=== PATIENT | female | born 1970 | race Asian ===

== ENCOUNTER 2024-09-18 13:36 | Outpatient (AMB) | payer MEDICAID, SELFPAY ==
[2024-09-18 14:08] VITALS: BP 127/74; PULSE 91; RESP 18; TEMP 36.3; O2SAT 95; BMI 28.0
--- NOTE | 2024-09-18 14:08 | ACNOTE_ITS ---
Vital Signs 09/18/24 14:08 Height 1.6 m Height Method Stated Weight 71.894 kg Weight Measurement Method Standing Scale BMI 28.0 BP 127/74 Blood Pressure Source Automatic Cuff Blood Pressure Location Left Upper Arm Position Sitting Respiration 18 Pulse 91 Pulse Source Monitor Temp 97.3 F Temp Source Oral Pulse Oximetry (%) 95 Oxygen Delivery Method Room Air Allergies/Meds Allergies & Medications Allergies Sulfa (Sulfonamide Antibiotics) Allergy (Verified 09/18/24 14:09) Medication Reconciliation famotidine 40 mg tablet 40 mg PO QDAY #90 tabs 01/03/24 [Rx Confirmed 09/18/24] ibuprofen 600 mg tablet 600 mg PO TID PRN arthritis #90 tabs 01/03/24 [Rx Confirmed 09/18/24] diclofenac sodium 1 % topical gel (Arthritis Pain (diclofenac)) 4 g topical QID #100 grams 07/12/24 [Rx Confirmed 09/18/24] bupropion HCl 150 mg 24 hr tablet, extended release 150 mg PO QAM 1 month #30 tabs 08/10/24 [Rx Confirmed 09/18/24] cariprazine 3 mg capsule 3 mg PO QDAY 1 month #30 caps 08/10/24 [Rx Confirmed 09/18/24] losartan 100 mg-hydrochlorothiazide 25 mg tablet 90 tab PO QDAY Hypertension #30 tabs 08/10/24 [Rx Confirmed 09/18/24] sertraline 200 mg capsule 200 mg PO QDAY depression #30 caps 09/11/24 [Rx Confirmed 09/18/24] zolpidem 5 mg tablet (Ambien) 5 mg PO QHS PRN insomnia #30 tabs 09/21/24 [Rx] MA Intake Visit Data Collection New Patient or Established: Established Patient (seen at [facility] within 3 years) Seen by Clinical Staff ONLY (RN/MA): No Pain Present Currently: Yes Pain Location: Finger and Hand Pain scale:: 6 Pain Scale Used: [place]/[employer] Compounder Helper Required: No PCP or OBGYN visit in last 3 months: Yes Do You Feel Safe at Home: Yes Authorities Contacted: N/A Smoking Status Smoking Status: Never smoker Immunization / Flu Flu Vaccine in the Last 12 Months: No Flu Vaccine Exclusion Criteria: Refused by Patient Past Medical History Past Medical History CARDIAC: Positive Hypertension; Negative Congestive Heart Failure RESPIRATORY: Negative Chronic Obstructive Pulmonary Disease (COPD) GASTROINTESTINAL: Positive Gastrointestinal Disorders GENITOURINARY: Negative Renal Disease MUSCULOSKELETAL: Positive Arthritis ENDOCRINE: Negative Diabetes Mellitus Type 1 or Diabetes Mellitus Type 2 PSYCHO/SOCIAL: Positive Depression Family History FAMILY HISTORY: Positive Family Cancer Social History SMOKING STATUS: Smoking status: Never smoker SECOND HAND EXPOSURE: second hand exposure: Yes (Housemate) ALCOHOL: Alcohol Intake: Former ALCOHOL FREQUENCY: Alcohol Intake Frequency: A Few Times a Week HOUSING: Housing: House LIVES WITH: Lives With: Friend(s) 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 Patient Portal Questionaires Social History Living Situation History Housing: House Tobacco History Smoking Status: Never smoker Second Hand Smoke Exposure: Yes (Housemate) Alcohol History Alcohol Intake: Former Alcohol Intake Frequency: A Few Times a Week Domestic Abuse History Do You Feel Safe at Home: Yes Review of Systems Report any current symptoms Only answer those that you have currently: Past Medical History Past Medical History Have you ever been diagnosed with any of the following: Cardiology Problems Congestive Heart Failure: No Hypertension: Yes Respiratory Problems Chronic Obstructive Pulmonary Disease (COPD): No Genital/Urinary Problems Renal Disease: No Musculoskeletal Problems Arthritis: Yes Endocrine Problems Diabetes Mellitus Type 1: No Diabetes Mellitus Type 2: No Psychologic Problems Depression: Yes History of Present Illness HPI Narrative Follow up visit Patient ran out of sertraline for 1 week prior to having it refilled. During this time she experienced an acute stress and depressive episode and had to take time off from work. Today patient is requesting completion of a letter for extended leave from her workplace. She also requested sick leave. Both the letter and sick leave were issued and also faxed to her workplace. With regards to her insomnia patient says that Hydroxyzine does not work for her and for the past year she only gets on average 2-3 hours of sleep per night. Will discontinue her hydroxyzine and start on a trial of Zolpidem 5mg po HS as needed. To reassess at next visit. Her home medication Losartan/HCTZ 100/25 po daily was refilled. Patient reports home SBP's between 120s-130s. Objective/Exam Narrative Physical exam: Constitutional Alert, oriented x 3. Middle Aged Female. HEENT Vision grossly intact. Patent nares. Trachea midline Respiratory Chest normal on inspection and clear auscultation bilaterally Cardiovascular S1 and S2 audible, RRR. No murmurs carotid bruit. No gross JVD. Abdominal Soft and non tender to palpation in all quadrants. BS + Genitourinary No bladder tenderness, no flank pain. Normal to palpation Musculoskeletal Extremities tone within normal limits. No LE edema. Neurological CN II - XII grossly intact. Extremity motor and sensation grossly intact. Skin Warm, dry and intact. No apparent lesions. Psychiatric Tearful and Stressed affect Assessment & Plan Diagnosis / Problem List (1) Insomnia disorder, with non-sleep disorder mental comorbidity, recurrent: Status: Acute Assessment & Plan: With regards to her insomnia patient says that Hydroxyzine does not work for her and for the past year she only gets on average 2-3 hours of sleep per night. Will discontinue her hydroxyzine and start on a trial of Zolpidem 5mg po HS as needed. To reassess at next visit. Patient counselled to give herself at least an 8-10 hour window to sleep. She was informed not to drive or operate any heavy machinery while under the effect of medication. Also counselled about side effects of somnolence if sufficient sleep period not obtained. Plan: Plan: - Discontinued Hydroxyzine - Zolpidem 5mg po HS as needed for insomnia - To reasses at next visit - Patient counselled and advised if any new, persistent or worsening symptoms to either call the office, dial 911 or present to the emergency department. Plan Plan of care discussed with Attending Dr. Alma Napoles MD PGY 1 Additional Assessment Attending note: I, David Marquez MD, attest that I was physically present for the macias portions of the service and evaluated the patient with the resident and I reviewed and discussed the case with the resident and agree with the resident's findings and plans of care as documented above. Follow-up visit. Chronic problems reviewed. Blood pressure under good control with losartan hydrochlorothiazide. Patient remains on sertraline and Vraylar (cariprazine). Mood fairly stable. Continue to have issues with insomnia. Has tried multiple agents. We will try low-dose Ambien. Possible side effects reviewed with patient by resident physician. Sleep hygiene reviewed. David Marquez MD Physician Billing Established Patient Established Patient: E/M Level 3-CPT 17259 Office Procedures [facility] Level of Care Nursing/Assessment Patient Status: Established Patient Nursing Assessment/Reassessment: Medication Reconciliation, Update PMH in EMR and Vital Signs Coordination of Care: Complex Care and Chronic Disease 1-5, Consent,records obtained, informed consent, Education Simp Pt/Fam and Staff clarify orders Established Patient Charge Established Patient Point Assignment: 85 Established Patient Point Charge: EP Level 3 (80-115)
== END 2024-09-18 15:10 | disposition home or self-care (01) ==
LOC: HODAHC 13:36
PROVIDERS: Supervising Provider Internal Medicine
DX: F51.05 Insomnia due to other mental disorder (principal)
CPT/HCPCS: 99213; G0463

== ENCOUNTER 2024-09-27 02:35 | Emergency (ER) | payer MEDICAID, SELFPAY ==
[2024-09-27 02:43] VITALS: PULSE 68; RESP 24; O2SAT 99; BMI 27.1
[2024-09-27 02:56] VITALS: BP 168/98; PULSE 64; RESP 18; TEMP 36.6; O2SAT 97
--- NOTE | 2024-09-27 03:04 | XR_ITS ---
Examination: CT abdomen and pelvis without contrast. Coronal 3-D reconstructions. Sagittal 2-D reconstructions. Date and time of exam:September 27, 2024 0342 hrs. Indications: Right flank pain beginning yesterday getting worse CTDI: vol (mGy): 7.70 DLP: (mGycm): 395 Technique: Axial images of the abdomen have been obtained, 3 mm slice thickness Intravenous contrast material has not been administered. Low dose protocols were performed. One or more of the following dose reduction techniques were used; automated exposure control, adjustment of the mA and/or KV according to patient size, use of iterative reconstruction technique. Findings: No focal liver or splenic lesions Gastric sutures Absent gallbladder No pancreatic or adrenal mass Moderate left mild right renal parenchymal scar formation No renal or ureteral calculi, no hydronephrosis Normal appendix No bowel obstruction or diverticulitis Anteverted uterus Moderate osteopenia, advanced degenerative disc disease L1-L2, L2-L3, L5-S1 Impression: Moderate left mild right renal parenchymal scar formation No renal or ureteral calculi, no hydronephrosis Normal appendix No bowel obstruction diverticulitis or free air
--- NOTE | 2024-09-27 03:07 | PD.EDBACK ---
ED Back Injury Pain RME/HPI General Chief Complaint: Abdominal Pain Stated Complaint: RIGHT FLANK PAIN Time Seen by Provider: 09/27/24 03:04 Arrival date/time: 09/27/24 02:35 53F with history of HTN and psych presents to ED with 2 days of R flank pain and N/V. Patient has had kidney stones before and states this feels similar. Patient denies CP, SOB, leg pain/swelling, and fall/trauma. Limitations: no limitations Related Data Previous Rx's ?Medication ?Instructions ?Recorded famotidine 40 mg tablet 40 mg PO QDAY #90 tabs 01/03/24 ibuprofen 600 mg tablet 600 mg PO TID PRN arthritis #90 01/03/24 tabs diclofenac sodium 1 % topical gel 4 g topical QID #100 grams 07/12/24 (Arthritis Pain (diclofenac)) bupropion HCl 150 mg 24 hr tablet, 150 mg PO QAM 1 month #30 tabs 08/10/24 extended release cariprazine 3 mg capsule 3 mg PO QDAY 1 month #30 caps 08/10/24 losartan 100 90 tab PO QDAY Hypertension #30 08/10/24 mg-hydrochlorothiazide 25 mg tablet tabs sertraline 200 mg capsule 200 mg PO QDAY depression #30 caps 09/11/24 zolpidem 5 mg tablet (Ambien) 5 mg PO QHS PRN insomnia #30 tabs 09/21/24 Allergies Allergy/AdvReac Type Severity Reaction Status Date / Time Sulfa (Sulfonamide Allergy Verified 09/18/24 14:09 Antibiotics) Review of Systems Review of Systems Systems Reviewed: All systems reviewed, normal except as documented Constitutional Constitutional: Reports system reviewed and no additional complaints, except as documented, Denies fever(s) and Denies headache(s) ENT Ears, Nose, Mouth, and Throat: Denies disequilibrium and Denies headache(s) Cardiovascular Cardiovascular: Reports system reviewed and no additional complaints, except as documented, Denies chest pain and Denies dyspnea Respiratory Respiratory: Reports system reviewed and no additional complaints, except as documented, Denies cough and Denies dyspnea Gastrointestinal Gastrointestinal: Reports system reviewed and no additional complaints, except as documented, Reports as per HPI, Denies abdominal pain, Reports nausea and Reports vomiting Genitourinary Genitourinary: Reports as per HPI and Reports flank pain Neurologic Neurologic: Reports system reviewed and no additional complaints, except as documented, Denies confusion, Denies disequilibrium and Denies headache(s) Psychiatric Psychiatric: Denies confusion Past Medical History Past Medical History CARDIAC: Positive Hypertension; Negative Congestive Heart Failure RESPIRATORY: Negative Chronic Obstructive Pulmonary Disease (COPD) GASTROINTESTINAL: Positive Gastrointestinal Disorders GENITOURINARY: Negative Renal Disease MUSCULOSKELETAL: Positive Arthritis ENDOCRINE: Negative Diabetes Mellitus Type 1 or Diabetes Mellitus Type 2 PSYCHO/SOCIAL: Positive Depression Family History FAMILY HISTORY: Positive Family Cancer Social History SMOKING STATUS: Never smoker SECOND HAND EXPOSURE: Yes (Housemate) SUBSTANCE USE: does not use 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 Exam General Limitations: Present no limitations General appearance: Present alert and in no apparent distress Head Head exam: Present atraumatic Eye Eye exam: Present normal appearance, PERRL and EOMI ENT ENT exam: Present normal exam, normal oropharynx and mucous membranes moist Neck Neck exam: Present normal inspection, full ROM and trachea midline Chest Chest inspection: Present normal inspection and symmetric chest wall rise Respiratory Respiratory exam: Present normal lung sounds bilaterally Cardiovascular Cardiovascular exam: Present regular rate, normal rhythm and normal heart sounds Abdominal Exam Abdominal exam: Present soft and normal bowel sounds Extremities Exam Extremities exam: Present normal inspection and full ROM Back Exam Back exam: Present normal inspection and full ROM Neurological Exam Neurological exam: Present alert, oriented X3 and CN II-XII intact Psychiatric Psychiatric exam: Present normal affect and normal mood Skin Skin exam: Present warm, dry, intact and normal color Course Quality Measures none Orders Category Date Time Status CT abdomen pelvis wo con Stat Exams 09/27/24 03:04 Taken CBC Stat Lab 09/27/24 03:30 Completed CMP [Comprehensive Metabolic Panel] Stat Lab 09/27/24 03:30 Completed Lipase Stat Lab 09/27/24 03:30 Completed Urinalysis, C/S if Indicated Stat Lab 09/27/24 03:29 Completed HYDROcodone*/APAP 7.5/325 [[place] 7.5/325] Med 09/27/24 05:37 Discontinued 1 tab PO X1 ONE Ketorolac Inj [Toradol Inj] Med 09/27/24 03:04 Discontinued 60 mg IM X1 ONE Ondansetron Odt [Zofran Odt] Med 09/27/24 03:04 Discontinued 4 mg PO X1 ONE Vital Signs Vital signs: Vital Signs Temperature 97.9 F 09/27/24 02:56 Pulse Rate 64 09/27/24 02:56 Respiratory Rate 18 09/27/24 02:56 Blood Pressure 168/98 H 09/27/24 02:56 Pulse Oximetry (%) 97 09/27/24 02:56 Oxygen Delivery Method Room Air 09/27/24 02:56 O2 at 97% on RA and WNLs Back Pain / Injury MDM Narrative MDM Narrative:: 53F with history of HTN and psych presents to ED with 2 days of R flank pain and N/V. Patient has had kidney stones before and states this feels similar. Patient denies CP, SOB, leg pain/swelling, and fall/trauma. Physical exam reveals no flank tenderness. Patient is afebrile, alert, but appears to be in pain. CT no acute abnormalities. No leukocytosis. CMP unremarkable. UA clean. Lipase normal. Likely MSK-related. Patient data External records reviewed:: [facility] previous records Clinical information provided by:: patient Social determinants that could affect healthcare access:: mental health Patient has the following chronic illnesses:: HTN and psych How is presenting disease/condition affected by chronic disease/condition?: exacerbated by Evaluation data The following diagnostics were reviewed and interpreted by me:: lab results and radiology exam(s) Lab and/or radiology exams considered but not ordered:: ordered Interpretation Summary: above Medications / Prescriptions Medications or Prescriptions considered but not ordered:: ordered Medication administrations:: Medication Administration History Discontinued Medications Hydrocodone Bitart/Acetaminophen (Hydrocodone/Apap 7.5/325 Tablet) 1 tab PO X1 ONE Stop: 09/27/24 05:38 Ketorolac Tromethamine (Ketorolac Inj 60 Mg/2 Ml Vial) 60 mg IM X1 ONE Stop: 09/27/24 03:05 Last Admin: 09/27/24 03:12 Dose: 60 mg Documented By: KATE Ondansetron HCl (Ondansetron Odt 4 Mg Tabrap) 4 mg PO X1 ONE; Protocol Stop: 09/27/24 03:05 Last Admin: 09/27/24 03:13 Dose: 4 mg Documented By: KATE above Consultations Consultation(s) initiated? (list below): No Diagnosis Differential diagnosis back pain/injury: lumbar radiculopathy, sciatica, strain of lumbar region, renal colic, pyelonephritis, thoracic back pain, AAA, discitis and other (kidney stone, UTI) Most likely diagnosis given after review of the tests above:: lumbar radiculopathy Admission Indicated Admission indicated?: not indicated Admission Request Was there a request for admission?: No Disposition Plan Disposition Plan: Discharge Discharge Attestation Discharge Attestation: The patient and all family members were given an opportunity to ask questions and understood the discharge instructions. Discharge instructions specifically effects, indications for sooner follow up or return to the emergency department, and the expected course of current diagnosis. Patient condition: Stable Discharge Plan Plan Patient Disposition: HOME (Self Care) Disposition Comment: Stable Prescriptions/Referrals Prescriptions/Med Rec: No Action diclofenac sodium [Arthritis Pain (diclofenac)] 1 % gel 4 g topical QID Qty: 100 1RF Rx Instructions: apply to single knee, ankle, foot; for foot includes sole/toes/top of foot bupropion HCl 150 mg tablet extended release 24 hr 150 mg PO QAM 30 Days Qty: 30 2RF cariprazine 3 mg capsule 3 mg PO QDAY 30 Days Qty: 30 2RF losartan-hydrochlorothiazide 100-25 mg tablet 90 tab PO QDAY Qty: 30 2RF famotidine 40 mg tablet 40 mg PO QDAY MDD 40mg Qty: 90 1RF ibuprofen 600 mg tablet 600 mg PO TID MDD 2400mg PRN (Reason: arthritis) Qty: 90 1RF zolpidem [Ambien] 5 mg tablet 5 mg PO QHS PRN (Reason: insomnia) Qty: 30 2RF sertraline 200 mg capsule 200 mg PO QDAY MDD 200 mg Qty: 30 5RF Problem List Clinical Impression: Lumbar radiculopathy Patient/Caregiver Discharge Instructions Education Materials: ED Back Pain (Acute or Chronic) Additional Instructions: Please follow-up with PCP within 24-48 hours and return immediately if symptoms worsen. If problem persists, recommend outpatient PT and/or MRI follow-up. In the meantime, rest, use ice/heat, and/or compression. Print Language: Malagasy Stand Alone Forms: Patient Portal Info Letter OUSMANE/LIVING SKILLS ADVISOR Supervising Physician OUSMANE/SAV Supervising Physician: Dr. Moore
[2024-09-27] MEDS: KETOROLAC INJ 60 MG/2 ML VIAL IM (03:12)
[2024-09-27] MEDS: ONDANSETRON ODT 4 MG TABRAP PO (03:13)
[2024-09-27 03:46] LABS: Collection Type, Urine Clean Catch
[2024-09-27 03:50] LABS: Basophils # (Auto) 0.1 Thou/mm3 (0.0-0.2); Basophils % (Auto) 1 % (0-2.5); Eosinophils # (Auto) 0.3 Thou/mm3 (0.0-0.5); Eosinophils % (Auto) 3 % (0-10); Hematocrit 42.5 % (36.0-46.0); Hemoglobin 14.5 g/dL (12.0-16.0); Immature Granulocytes % (Auto) 0 % (0-0); Immature Granulocytes Auto 0.02 Thou/mm3 (0.00-0.00); Lymphocytes # (Auto) 3.4 Thou/mm3 (1.0-4.8); Lymphocytes % (Auto) 35 % (10-50); Mean Corpuscular HGB Conc 34.1 g/dl (31.0-37.0); Mean Corpuscular Hemoglobin 30.6 pg (25.0-35.0); Mean Corpuscular Volume 90 fL (80-100); Monocytes # (Auto) 0.7 Thou/mm3 (0.0-0.8); Monocytes % (Auto) 8 % (0-12); Neutrophils # (Auto) 5.1 Thou/mm3 (1.8-7.7); Neutrophils % (Auto) 53 % (37-80); Nucleated Red Blood Cell % 0 /100 WBC (0); Platelet Count 446 Thou/mm3 (140-440); RDW Standard Deviation 41.1 fL (36.4-46.3); Red Blood Count 4.74 Miln/mm3 (4.00-5.20); White Blood Count 9.7 Thou/mm3 (3.6-11.0)
[2024-09-27 04:12] LABS: Alanine Aminotransferase 16 U/L (10-49); Albumin, Serum 4.5 gm/dL (3.5-5.0); Albumin/Globulin Ratio 1.6 (1.2-2.2); Alkaline Phosphatase 80 U/L (46-116); Anion Gap 9 (7-16); Aspartate Amino Transferase 13 U/L (0-34); BUN/Creatinine Ratio 14 Ratio (12-20); Bilirubin,Total 0.5 mg/dL (0.3-1.2); Blood Urea Nitrogen 10 mg/dL (9-23); Calcium 9.1 mg/dL (8.3-10.6); Calcium (Corrected) 9.1 mg/dL (8.5-10.1); Carbon Dioxide 25.8 mMol/L (20.0-31.0); Chloride 102 mMol/L (98-107); Creatinine (Component) 0.7 mg/dL (0.6-1.3); Estimated Creatinine Clearance 84.9 mL/min (>60); Globulin 2.9 gm/dL (2.3-3.5); Glucose 111 mg/dL (74-106); Lipase 50 U/L (12-53); Osmolality,Calculated 273 (275-295); Potassium 3.4 mMol/L (3.4-5.1); Sodium 137 mMol/L (136-145); Total Protein 7.4 gm/dL (5.7-8.2); eGFR > 60 See Note
[2024-09-27 04:13] LABS: Bacteria,Urine Rare; Bilirubin,Urine Negative (Negative); Blood,Urine Trace (Negative); Clarity,Urine Clear (Clear/Hazy); Color,Urine Lt-Yellow (Lt Yel-Yel); Culture Indicated,Urine Not Indicated; Glucose, Urine Negative (Negative); Hyaline Casts,Urine 1 /hpf (0-1); Ketones,Urine Negative (Negative); Leukocyte Esterase,Urine Positive (Negative); Nitrite,Urine Negative (Negative); PH,Urine 6.5 (5.0-7.0); Protein,Urine Negative (Neg - Trace); RBC,Urine 1 /hpf (0-3); Specific Gravity,Urine 1.016 (1.001-1.035); Squamous Epithelial Cell,Urine 2 /hpf (0-5); Urobilinogen,Urine Negative mg/dL (0.0-1.0); WBC,Urine 1 /hpf (0-5)
--- NOTE | 2024-09-27 05:15 | PRELIM_ITS ---
CT scan of the abdomen and pelvis without intravenous contrast (axial sections with sagittal and kareen nal reformats). September 27, 2024 0341 hours Iterative reconstruction technique was employed to reduce patient radiation exposure.Clinical History: R Flank pain Comparison: NoneFindings:Gallbladder is pringle rgically absent. The unenhanced liver, spleen, pancreas, adrenals and kidneys are unremarkable. The re is cortical scarring suggested of the left kidney which may represent sequela of prior infection/i nflammatory process. There is no renal or ureteral calculus. There is no hydroureteronephrosis. Ur inary bladder contains trace amount of fluid and is not adequately distended. Reproductive organs ar e unremarkable. Small hiatus hernia noted. There are postoperative changes to the stomach. There i s no bowel obstruction. Appendix is normal. There is no free intraperitoneal air or fluid. There i s no abdominal or pelvic lymphadenopathy. There are vascular calcifications along the abdominal aort a without aneurysmal dilatation. Visualized lung bases are clear. There is degenerative change in t he spine with multilevel foraminal and spinal canal stenosis. There is interspinous degenerative wit hin the spineImpression:No renal or ureteral calculus. No hydroureteronephrosis. Report Electronical ly Signed By: Savage Mims 09/27/2024 5:15:10 AM [EST]
[2024-09-27] MEDS: HYDROcodone/APAP 7.5/325 TABLET 1 TAB PO (05:44)
[2024-09-27 05:46] VITALS: BP 155/64; PULSE 78; RESP 19; TEMP 36.6; O2SAT 99
== END 2024-09-27 05:46 | disposition home or self-care (01) ==
LOC: SERX 06:16
PROVIDERS: Physician Assistant; Emergency Provider Emergency Medicine
DX: M54.16 Radiculopathy, lumbar region (principal); R10.9 Unspecified abdominal pain
CPT/HCPCS: 36415; 74176; 80053; 81001; 83690; 85025; 96372; 99284; J1885; Q0162; A9270

== ENCOUNTER 2024-10-02 13:28 | Emergency (ER) | payer MEDICAID, SELFPAY ==
[2024-10-02 13:28] VITALS: PULSE 104; RESP 19; O2SAT 99
[2024-10-02 13:50] VITALS: BP 111/76; PULSE 78; RESP 18; TEMP 36.7; O2SAT 99; BMI 26.7
--- NOTE | 2024-10-02 13:55 | XR_ITS ---
Examination: Pelvic ultrasound, transabdominal, complete Technique: Transabdominal ultrasound of the pelvis performed using grayscale imaging Date and time of exam: October 02, 2024 1452 hours INDICATIONS: Lower back pain beginning 4 days ago radiating to the pelvis FINDINGS: Uterus 6.3 x 2.3 x 4.3 cm No uterine mass Ovaries obscured by bowel gas Endometrial stripe 0.2 cm IMPRESSION: Limited study secondary to bowel gas No uterine mass
--- NOTE | 2024-10-02 13:56 | PD.EDRME ---
Rapid Medical Screening Exam [facility] Arrival date/time: 10/02/24 13:28 53-year-old female with no known medical history presents to the emergency room with a chief complaint of right-sided flank pain that radiates down to the right groin area. Patient states she feels relief after urinating and having a bowel movement. Patient was seen here 5 days ago and had a full workup which was negative for any renal calculi. Patient states since her last visit her symptoms have progressively gotten worse and she was sent over by her primary care provider. I have greeted and performed a focused initial assessment of this patient. A comprehensive ED assessment and evaluation of the patient, analysis of all test results, and completion of the medical decision making process will be conducted by additional ED providers. Chief Complaint: Back Pain/Injury Vital signs: Vital Signs Temperature 98.1 F 10/02/24 13:50 Pulse Rate 78 10/02/24 13:50 Respiratory Rate 18 10/02/24 13:50 Blood Pressure 111/76 10/02/24 13:50 Pulse Oximetry (%) 99 10/02/24 13:50 Oxygen Delivery Method Room Air 10/02/24 13:50 Vital signs reviewed by provider: Yes
[2024-10-02] MEDS: KETOROLAC INJ 60 MG/2 ML VIAL 30 MG IM (14:07)
[2024-10-02 14:41] LABS: Collection Type, Urine Clean Catch
[2024-10-02 14:44] LABS: Basophils # (Auto) 0.1 Thou/mm3 (0.0-0.2); Basophils % (Auto) 1 % (0-2.5); Eosinophils # (Auto) 0.3 Thou/mm3 (0.0-0.5); Eosinophils % (Auto) 4 % (0-10); Hemoglobin 13.4 g/dL (12.0-16.0); Immature Granulocytes % (Auto) 0 % (0-0); Immature Granulocytes Auto 0.02 Thou/mm3 (0.00-0.00); Lymphocytes # (Auto) 2.4 Thou/mm3 (1.0-4.8); Lymphocytes % (Auto) 36 % (10-50); Mean Corpuscular HGB Conc 34.4 g/dl (31.0-37.0); Mean Corpuscular Hemoglobin 30.5 pg (25.0-35.0); Mean Corpuscular Volume 89 fL (80-100); Monocytes # (Auto) 0.4 Thou/mm3 (0.0-0.8); Monocytes % (Auto) 5 % (0-12); Neutrophils # (Auto) 3.7 Thou/mm3 (1.8-7.7); Neutrophils % (Auto) 54 % (37-80); Nucleated Red Blood Cell % 0 /100 WBC (0); Platelet Count 409 Thou/mm3 (140-440); RDW Standard Deviation 41.5 fL (36.4-46.3); Red Blood Count 4.39 Miln/mm3 (4.00-5.20); White Blood Count 6.8 Thou/mm3 (3.6-11.0)
[2024-10-02 14:48] LABS: Bilirubin,Urine Negative (Negative); Blood,Urine Negative (Negative); Clarity,Urine Clear (Clear/Hazy); Color,Urine Colorless (Lt Yel-Yel); Glucose, Urine Negative (Negative); Ketones,Urine Negative (Negative); Leukocyte Esterase,Urine Negative (Negative); Nitrite,Urine Negative (Negative); Protein,Urine Negative (Neg - Trace); RBC,Urine 1 /hpf (0-3); Specific Gravity,Urine 1.005 (1.001-1.035); Squamous Epithelial Cell,Urine < 1 /hpf (0-5); Urobilinogen,Urine Negative mg/dL (0.0-1.0); WBC,Urine < 1 /hpf (0-5)
[2024-10-02 14:49] LABS: HCG Qualitative,Urine Negative
[2024-10-02 15:16] LABS: Alanine Aminotransferase 19 U/L (10-49); Albumin, Serum 4.6 gm/dL (3.5-5.0); Albumin/Globulin Ratio 1.7 (1.2-2.2); Alkaline Phosphatase 73 U/L (46-116); Anion Gap 7 (7-16); Aspartate Amino Transferase 16 U/L (0-34); BUN/Creatinine Ratio 15 Ratio (12-20); Bilirubin,Total 0.4 mg/dL (0.3-1.2); Blood Urea Nitrogen 9 mg/dL (9-23); Calcium 9.6 mg/dL (8.3-10.6); Calcium (Corrected) 9.6 mg/dL (8.5-10.1); Carbon Dioxide 30.6 mMol/L (20.0-31.0); Chloride 101 mMol/L (98-107); Creatinine (Component) 0.6 mg/dL (0.6-1.3); Estimated Creatinine Clearance 102.2 mL/min (>60); Globulin 2.7 gm/dL (2.3-3.5); Glucose 92 mg/dL (74-106); Lipase 36 U/L (12-53); Osmolality,Calculated 276 (275-295); Potassium 3.5 mMol/L (3.4-5.1); Sodium 139 mMol/L (136-145); Total Protein 7.3 gm/dL (5.7-8.2); eGFR > 60 See Note
[2024-10-02 17:44] VITALS: BP 134/96; PULSE 80; RESP 16; TEMP 36.5; O2SAT 98
--- NOTE | 2024-10-02 18:09 | PD.EDADULT ---
ED General RME/HPI General Chief complaint: Back Pain/Injury Stated complaint: RIGHT FLANK PAIN, NAUSEA Time Seen by Provider: 10/02/24 17:58 Arrival date/time: 10/02/24 13:28 CC: Right buttock/low back pain HPI ongoing for 1 week site specific worse with sitting or standing is reproducible with deep palpation in the right upper buttock. No masses appreciated. Patient denies numbness or tingling in the lower extremity. Had a workup here 6 days ago for the same complaint patient now states the pain is unbearable . Patient is able to ambulate without complication. RME / HPI RME / HPI narrative: 10/02/24 13:28 53-year-old female with no known medical history presents to the emergency room with a chief complaint of right-sided flank pain that radiates down to the right groin area. Patient states she feels relief after urinating and having a bowel movement. Patient was seen here 5 days ago and had a full workup which was negative for any renal calculi. Patient states since her last visit her symptoms have progressively gotten worse and she was sent over by her primary care provider. I have greeted and performed a focused initial assessment of this patient. A comprehensive ED assessment and evaluation of the patient, analysis of all test results, and completion of the medical decision making process will be conducted by additional ED providers. Related Data Previous Rx's ?Medication ?Instructions ?Recorded famotidine 40 mg tablet 40 mg PO QDAY #90 tabs 01/03/24 ibuprofen 600 mg tablet 600 mg PO TID PRN arthritis #90 01/03/24 tabs diclofenac sodium 1 % topical gel 4 g topical QID #100 grams 07/12/24 (Arthritis Pain (diclofenac)) bupropion HCl 150 mg 24 hr tablet, 150 mg PO QAM 1 month #30 tabs 08/10/24 extended release cariprazine 3 mg capsule 3 mg PO QDAY 1 month #30 caps 08/10/24 losartan 100 90 tab PO QDAY Hypertension #30 08/10/24 mg-hydrochlorothiazide 25 mg tablet tabs sertraline 200 mg capsule 200 mg PO QDAY depression #30 caps 09/11/24 zolpidem 5 mg tablet (Ambien) 5 mg PO QHS PRN insomnia #30 tabs 09/21/24 prednisone 20 mg tablet See Taper PO BID 3 days #6 tabs 10/02/24 Allergies Allergy/AdvReac Type Severity Reaction Status Date / Time Sulfa (Sulfonamide Allergy Verified 09/18/24 14:09 Antibiotics) Review of Systems Review of Systems Narrative Review of Systems: GEN: No fever, no chills, no weight loss EYES: No discharge, no visual changes, no pain HEENT: No ear pain, no congestion, no sore throat PULM: No shortness of breath, no cough, no congestion CV: No chest pain, no dyspnea on exertion, no palpitations GI: No nausea, no vomiting, no diarrhea, no pain, no constipation : No frequency, no urgency, no dysuria MUSC/SKEL: No joint pain, no back pain,+ buttock pain SKIN: No rash PSYCH: No hallucinations, no depression HEME/LYMPH: No easy bleeding or bruising tendencies NEURO: No weakness, no headache Past Medical History Past Medical History CARDIAC: Positive Hypertension; Negative Congestive Heart Failure RESPIRATORY: Negative Chronic Obstructive Pulmonary Disease (COPD) GASTROINTESTINAL: Positive Gastrointestinal Disorders GENITOURINARY: Negative Renal Disease MUSCULOSKELETAL: Positive Arthritis ENDOCRINE: Negative Diabetes Mellitus Type 1 or Diabetes Mellitus Type 2 PSYCHO/SOCIAL: Positive Depression Family History FAMILY HISTORY: Positive Family Cancer Social History SMOKING STATUS: Never smoker SECOND HAND EXPOSURE: Yes (Housemate) SUBSTANCE USE: does not use 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 ED Exam Narrative Physical exam: [General: Obese not in cot no acute distress Head normocephalic HEENT: Within acceptable limits Neck is supple nontender Chest equal chest rise nontender to palpation Respiratory: Clear to auscultation no wheezes crackles or rubs CV: Rate rhythm is regular no murmurs rubs or clicks Abdomen is distended secondary to body habitus soft nontender no masses positive bowel sounds all 4 quadrants Back: No CVA tenderness no spinous process tenderness from cervical spine thoracic and lumbar spine Skin: Intact no petechiae rash induration ulceration or crepitus Extremities: Site-specific tenderness and pain with flexion extension of the right lower extremity with an area right in the center upper right buttock. No hard masses appreciated no erythema or edema seen. Moving all extremity against resistance cap refill less than 2 seconds neurosensory intact Neuro: Awake alert oriented x3 Glascow coma 15 no focal deficits] Course Quality Measures none Orders Category Date Time Status US pelvic complete Stat Exams 10/02/24 13:55 Completed CBC Stat Lab 10/02/24 14:20 Completed CMP [Comprehensive Metabolic Panel] Stat Lab 10/02/24 14:20 Completed HCG Qualitative,Urine Stat Lab 10/02/24 14:35 Completed Lipase Stat Lab 10/02/24 14:20 Completed UA [Urinalysis] Stat Lab 10/02/24 14:35 Completed Urine Culture Stat Lab 10/02/24 14:35 Received HYDROcodone/APAP 10/325 [[place] 10/325] Med 10/02/24 18:08 Discontinued 1 tab PO X1 ONE Ketorolac Inj [Toradol Inj] Med 10/02/24 13:55 Discontinued 30 mg IM X1 ONE Vital Signs Vital signs: Vital Signs Temperature 98.1 F 10/02/24 13:50 Pulse Rate 78 10/02/24 13:50 Respiratory Rate 18 10/02/24 13:50 Blood Pressure 111/76 10/02/24 13:50 Pulse Oximetry (%) 99 10/02/24 13:50 Oxygen Delivery Method Room Air 10/02/24 13:50 [facility] Patient data External records reviewed:: [facility] previous records Clinical information provided by:: patient Social determinants that could affect healthcare access:: none Patient has the following chronic illnesses:: None How is presenting disease/condition affected by chronic disease/condition?: uneffected by Evaluation data The following diagnostics were reviewed and interpreted by me:: lab results and radiology exam(s) Lab and/or radiology exams considered but not ordered:: CBC shows no acute leukocytosis anemia thrombocytopenia CMP shows no electrolyte imbalances renal impairment transaminitis or T. bili elevation. Ultrasound of the abdomen is negative for any acute finding requires emergent or meet intervention as interpreted by me read by radiology. Interpretation Summary: Previous workup, imaging from today and from 6 days ago I suspect this is musculoskeletal or possible nerve impingement. Patient will need to follow-up primary care consider an outpatient MRI. Medications Medications considered but not ordered:: None Medication administrations:: Medication Administration History Discontinued Medications Hydrocodone Bitart/Acetaminophen (Hydrocodone/Apap 10/325 Tab) 1 tab PO X1 ONE Stop: 10/02/24 18:09 Ketorolac Tromethamine (Ketorolac Inj 60 Mg/2 Ml Vial) 30 mg IM X1 ONE Stop: 10/02/24 13:56 Last Admin: 10/02/24 14:07 Dose: 30 mg Documented By: None Consultations Consultation(s) initiated? (list below): No Diagnosis Differential Diagnosis ED Complaint MDM: Radiculopathy compression fracture muscle strain fasciitis Most likely diagnosis given after review of the tests above:: Low back pain Admission Indicated Admission indicated?: not indicated Explain why admission is indicated or not indicated:: Stable for outpatient follow-up Admission Request Was there a request for admission?: No Disposition Plan Disposition Plan: Discharge Discharge Attestation Discharge Attestation: The patient and all family members were given an opportunity to ask questions and understood the discharge instructions. Discharge instructions specifically effects, indications for sooner follow up or return to the emergency department, and the expected course of current diagnosis. Patient condition: Stable Medical Decision Making Differential Diagnosis Differential Diagnosis: Radiculopathy compression fracture muscle strain fasciitis Lab Data 10/02/24 14:20 10/02/24 14:20 Labs: Lab Results 10/02/24 10/02/24 Range/Units 14:20 14:35 WBC 6.8 (3.6-11.0) Thou/mm3 RBC 4.39 (4.00-5.20) Miln/mm3 Hgb 13.4 (12.0-16.0) g/dL Hct 39.0 (36.0-46.0) % MCV 89 (80-100) fL MCH 30.5 (25.0-35.0) pg MCHC 34.4 (31.0-37.0) g/dl RDW Std Deviation 41.5 (36.4-46.3) fL Plt Count 409 D (140-440) Thou/mm3 Neut % (Auto) 54 (37-80) % Lymph % (Auto) 36 (10-50) % [place] % (Auto) 5 (0-12) % Eos % (Auto) 4 (0-10) % Baso % (Auto) 1 (0-2.5) % Neut # (Auto) 3.7 (1.8-7.7) Thou/mm3 Lymph # (Auto) 2.4 (1.0-4.8) Thou/mm3 [place] # (Auto) 0.4 (0.0-0.8) Thou/mm3 Eos # (Auto) 0.3 (0.0-0.5) Thou/mm3 Baso # (Auto) 0.1 (0.0-0.2) Thou/mm3 Immature Gran # (Auto) 0.02 H (0.00-0.00) Thou/mm3 Absolute Nucleated RBC 0.00 (0.00-0.00) Thou/mm3 Immature Gran % 0 (0-0) % Nucleated RBC % 0 (0) /100 WBC Sodium 139 (136-145) mMol/L Potassium 3.5 (3.4-5.1) mMol/L Chloride 101 (98-107) mMol/L Carbon Dioxide 30.6 (20.0-31.0) mMol/L Anion Gap 7 (7-16) BUN 9 (9-23) mg/dL Creatinine 0.6 (0.6-1.3) mg/dL Estim Creat Clear Calc 102.2 (>60) mL/min eGFR > 60 (60 - ) See Note BUN/Creatinine Ratio 15 (12-20) Ratio Glucose 92 (74-106) mg/dL Calculated Osmolality 276 (275-295) Calcium 9.6 (8.3-10.6) mg/dL Corrected Calcium 9.6 (8.5-10.1) mg/dL Total Bilirubin 0.4 (0.3-1.2) mg/dL AST 16 (0-34) U/L ALT 19 (10-49) U/L Alkaline Phosphatase 73 (46-116) U/L Total Protein 7.3 (5.7-8.2) gm/dL Albumin 4.6 (3.5-5.0) gm/dL Globulin 2.7 (2.3-3.5) gm/dL Albumin/Globulin Ratio 1.7 (1.2-2.2) Lipase 36 (12-53) U/L Ur Collection Type Clean Catch Urine Color Colorless A (Lt Yel-Yel) Urine Clarity Clear (Clear/Hazy) Urine pH 7.0 (5.0-7.0) Ur Specific [place] 1.005 (1.001-1.035) Urine Protein Negative (Neg - Trace) Urine Glucose (UA) Negative (Negative) Urine Ketones Negative (Negative) Urine Blood Negative (Negative) Urine Nitrite Negative (Negative) Urine Bilirubin Negative (Negative) Urine Urobilinogen (Auto) Negative (0.0-1.0) mg/dL Ur Leukocyte Esterase Negative (Negative) Urine RBC 1 (0-3) /hpf Urine WBC < 1 (0-5) /hpf Ur Squamous Epith Cells < 1 (0-5) /hpf Urine Bacteria None (None) Urine HCG, Qual Negative Discharge Plan Plan Patient Disposition: HOME (Self Care) Patient condition on transfer: Stable Prescriptions/Referrals Prescriptions/Med Rec: New prednisone 20 mg tablet See Taper PO BID 3 Days Qty: 6 0RF Taper: Prednisone Taper 20 mg DAILY for 2 Days and 0 Hour 10 mg DAILY for 2 Days and 0 Hour 5 mg DAILY for 7 Days and 0 Hour No Action diclofenac sodium [Arthritis Pain (diclofenac)] 1 % gel 4 g topical QID Qty: 100 1RF Rx Instructions: apply to single knee, ankle, foot; for foot includes sole/toes/top of foot bupropion HCl 150 mg tablet extended release 24 hr 150 mg PO QAM 30 Days Qty: 30 2RF cariprazine 3 mg capsule 3 mg PO QDAY 30 Days Qty: 30 2RF losartan-hydrochlorothiazide 100-25 mg tablet 90 tab PO QDAY Qty: 30 2RF famotidine 40 mg tablet 40 mg PO QDAY MDD 40mg Qty: 90 1RF ibuprofen 600 mg tablet 600 mg PO TID MDD 2400mg PRN (Reason: arthritis) Qty: 90 1RF zolpidem [Ambien] 5 mg tablet 5 mg PO QHS PRN (Reason: insomnia) Qty: 30 2RF sertraline 200 mg capsule 200 mg PO QDAY MDD 200 mg Qty: 30 5RF Referrals: Castillo Santo MD [Physician] - In 1 week No Primary/Family,Physician [Primary Care Provider] - In 1 week Problem List Clinical Impression: Lumbar radiculopathy Patient/Caregiver Discharge Instructions Education Materials: ED Back Pain (Acute or Chronic), ED Back and Neck Pain, General Additional Instructions: Consider follow-up for MRI as CT from prior visit ultrasound from today showed no acute finding requires emergent or immediate intervention. Print Language: Gambian Stand Alone Forms: Carol Award Info., Patient Portal Info Letter
[2024-10-02] MEDS: HYDROcodone/APAP 10/325 TAB PO (18:57)
== END 2024-10-02 18:59 | disposition home or self-care (01) ==
PROVIDERS: Nurse Practitioner Family; Emergency Provider Emergency Medicine
DX: M54.16 Radiculopathy, lumbar region (principal)
CPT/HCPCS: 36415; 76856; 80053; 81001; 81025; 83690; 85025; 87086; 96372; 99284; J1885; A9270

== ENCOUNTER 2024-11-12 11:53 | Emergency (ER) | payer MEDICAID, SELFPAY ==
[2024-11-12 11:54] VITALS: BMI 27.4
[2024-11-12 12:01] VITALS: BP 156/105; PULSE 98; RESP 18; TEMP 37.2; O2SAT 98
--- NOTE | 2024-11-12 12:10 | EDNOTE_ITS ---
ED General RME/HPI General Chief complaint: General Adult/Misc Complain Stated complaint: NEED MEDICATION REFILL, HAVEN'T SLEPT IN 3 DAYS Time Seen by Provider: 11/12/24 12:09 Arrival date/time: 11/12/24 11:53 53-year-old female with no known medical history presents to the emergency room with a chief complaint of needing a medication refill on her Ambien medication. Limitations: no limitations Related Data Previous Rx's ?Medication ?Instructions ?Recorded famotidine 40 mg tablet 40 mg PO QDAY #90 tabs 01/02 ibuprofen 600 mg tablet 600 mg PO TID PRN arthritis #90 01/03/24 tabs diclofenac sodium 1 % topical gel 4 g topical QID #100 grams 07/12/24 (Arthritis Pain (diclofenac)) bupropion HCl 150 mg 24 hr tablet, 150 mg PO QAM 1 wed #30 tabs 08/10/24 extended release cariprazine 3 mg capsule 3 mg PO QDAY 1 month #30 cap s 08/10/24 losartan 100 90 tab PO QDAY Hypertension #30 08/10/24 mg-hydrochlorothiazide 25 mg tablet tabs sertraline 200 mg capsule 200 mg PO QDAY depression #3 0 caps 09/11/24 zolpidem 5 mg tablet (Ambien) 5 mg PO QHS PRN insomnia #30 tabs 09/21/24 Allergies Allergy/AdvReac Type Severity Reaction Status Date / Time Sulfa (Sulfonamide Allergy Verified 11/12/24 11:54 Antibiotics) Past Medical History Past Medical History CARDIAC: Positive Hypertension; Negative Congestive Heart Failure RESPIRATORY: Negative Chronic Obstructive Pulmonary Disease (COPD) GASTROINTESTINAL: Positive Gastrointestinal Disorders GENITOURINARY: Negative Renal Disease MUSCULOSKELETAL: Positive Arthritis ENDOCRINE: Negative Diabetes Mellitus Type 1 or Diabetes Mellitus Type 2 PSYCHO/SOCIAL: Positive Depression Family History FAMILY HISTORY: Positive Family Cancer Social History SMOKING STATUS: Former smoker SECOND HAND EXPOSURE: Yes (Housemate) SUBSTANCE USE: does not use 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 ED Exam General Limitations: Present no limitations General appearance: Present alert and in no apparent distress Head Head exam: Present atraumatic Eye Eye exam: Present normal appearance, PERRL and EOMI ENT ENT exam: Present normal exam, normal oropharynx and mucous membranes moist Neck Neck exam: Present normal inspection, full ROM and trachea midline Chest Chest inspection: Present normal inspection and symmetric chest wall rise Respiratory Respiratory exam: Present normal lung sounds bilaterally Cardiovascular Cardiovascular exam: Present regular rate, normal rhythm and normal heart sounds Abdominal Exam Abdominal exam: Present soft and normal bowel sounds Extremities Exam Extremities exam: Present normal inspection and full ROM Back Exam Back exam: Present normal inspection and full ROM Neurological Exam Neurological exam: Present alert, oriented X3 and CN II-XII intact Psychiatric Psychiatric exam: Present normal affect and normal mood Skin Skin exam: Present warm, dry, intact and normal color Course Quality Measures none Vital Signs Vital signs: Vital Signs Temperature 98.9 F 11/12/24 12:01 Pulse Rate 98 11/12/24 12:01 Respiratory Rate 18 11/12/24 12:01 Blood Pressure 156/105 H 11/12/24 12:01 Pulse Oximetry (%) 98 11/12/24 12:01 Oxygen Delivery Method Room Air 11/12/24 12:01 [facility] Patient data External records reviewed:: [facility] previous records Clinical information provided by:: patient Social determinants that could affect healthcare access:: none Patient has the following chronic illnesses:: No chronic illness How is presenting disease/condition affected by chronic disease/condition?: no chronic disease Evaluation data The following diagnostics were reviewed and interpreted by me:: lab results and radiology exam(s) Lab and/or radiology exams considered but not ordered:: Labs and radiology exams considered and ordered Interpretation Summary: N/A Medications Medications considered but not ordered:: Medication not given Medication administrations:: Medication not given Consultations Consultation(s) initiated? (list below): No Diagnosis Differential Diagnosis ED Complaint MDM: Medication refill Most likely diagnosis given after review of the tests above:: Medication refill Admission Indicated Admission indicated?: not indicated Explain why admission is indicated or not indicated:: N/A Admission Request Was there a request for admission?: No Disposition Plan Disposition Plan: Discharge Discharge Attestation Discharge Attestation: The patient and all family members were given an opportunity to ask questions and understood the discharge instructions. Discharge instructions specifically effects, indications for sooner follow up or return to the emergency department, and the expected course of current diagnosis. Patient condition: Stable Medical Decision Making MDM Narrative MDM Narrative: 53-year-old female with no known medical history presents to the emergency room with a chief complaint of needing a medication refill on her Ambien medication. Patient is hemodynamically stable and in no apparent distress Patient states she has a primary care provider appointment on Wednesday. Patient also has a refill for her medication. Patient states that she has been doubling on her dose of Ambien medication to help with her insomnia. I spoke to the patient and told her that she needs to be following the dosage on her prescription bottle. Patient needs to follow-up with her primary care provider for titration of her Ambien if needed. Since the patient has a refill ordered m edication the patient was discharged and educated to follow-up with her primary care provider and return to the emergency room for any evidence of worsening signs or Differential Diagnosis Differential Diagnosis: Medication refill Discharge Plan Plan Patient Disposition: HOME (Self Care) Disposition Comment: Stable Prescriptions/Referrals Prescriptions/Med Rec: No Action diclofenac sodium [Arthritis Pain (diclofenac)] 1 % gel 4 g topical QID Qty: 100 1RF Rx Instructions: apply to single knee, ankle, foot; for foot includes sole/toes/top of foot bupropion HCl 150 mg tablet extended release 24 hr 150 mg PO QAM 30 Days Qty: 30 2RF cariprazine 3 mg capsule 3 mg PO QDAY 30 Days Qty: 30 2RF losartan-hydrochlorothiazide 100-25 mg tablet 90 tab PO QDAY Qty: 30 2RF famotidine 40 mg tablet 40 mg PO QDAY MDD 40mg Qty: 90 1RF ibuprofen 600 mg tablet 600 mg PO TID MDD 2400mg PRN (Reason: arthritis) Qty: 90 1RF zolpidem [Ambien] 5 mg tablet 5 mg PO QHS PRN (Reason: insomnia) Qty: 30 2RF sertraline 200 mg capsule 200 mg PO QDAY MDD 200 mg Qty: 30 5RF Problem List Clinical Impression: Encounter for medication refill Patient/Caregiver Discharge Instructions Additional Instructions: Please follow-up with your primary care provider in the next 24 to 48 hours. You have 1 refill available at your pharmacy. Please follow-up with your primary care provider and return to the emergency room for any evidence of worsening signs or symptom Print Language: Bangladeshi Stand Alone Forms: Carol Award Info., Patient Portal Info Letter PA/VP [employer] Supervising Physician PA/VP [facility] [employer] Supervising Physician: Dr De Anda
== END 2024-11-12 13:20 | disposition home or self-care (01) ==
LOC: SERX 12:25
PROVIDERS: Emergency Provider Emergency Medicine
DX: Z76.0 Encounter for issue of repeat prescription (principal)
CPT/HCPCS: 99281

== ENCOUNTER 2024-11-30 14:03 | Outpatient (AMB) | payer MEDICAID, SELFPAY ==
--- NOTE | 2024-12-07 07:36 | ACNOTE_ITS ---
Allergies/Meds Allergies & Medications Allergies Sulfa (Sulfonamide Antibiotics) Allergy (Verified 12/07/24 07:36) Medication Reconciliation famotidine 40 mg tablet 40 mg PO QDAY #90 tabs 01/03/24 [Rx Confirmed 12/07/24] ibuprofen 600 mg tablet 600 mg PO TID PRN arthritis #90 tabs 01/03/24 [Rx Confirmed 12/07/24] diclofenac sodium 1 % topical gel (Arthritis Pain (diclofenac)) 4 g topical QID #100 grams 07/12/24 [Rx Confirmed 12/07/24] losartan 100 mg-hydrochlorothiazide 25 mg tablet 90 tab PO QDAY Hypertension #30 tabs 08/10/24 [Rx Confirmed 12/07/24] sertraline 200 mg capsule 200 mg PO QDAY depression #30 caps 09/11/24 [Rx Confirmed 12/07/24] zolpidem 10 mg tablet 10 mg PO QHS PRN insomnia #30 tabs 11/15/24 [Rx Confirmed 12/07/24] bupropion HCl 150 mg 24 hr tablet, extended release 150 mg PO QAM #30 tabs 12/14/24 [Rx] cariprazine 4.5 mg capsule 4.5 mg PO QDAY #30 caps 01/04/25 [Rx] MA Intake Visit Data Collection New Patient or Established: Established Patient (seen at 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 Required: No PCP or OBGYN visit in last 3 months: No Hx Now: No Do You Feel Safe at Home: Yes Authorities Contacted: N/A Smoking Status Smoking Status: Former smoker For Televisit only Telemed Video/Phone Visit: Yes Verbal consent obtained for Telemed visit?: Yes Verbal Consent witness name: ari zapata ma Telemed Video/Phone visit w/Clinical Staff: 21-30 min Immunization / Flu Flu Vaccine in the Last 12 Months: No Flu Vaccine Exclusion Criteria: No Exclusion Criteria Past Medical History Past Medical History CARDIAC: Positive Hypertension; Negative Congestive Heart Failure RESPIRATORY: Negative Chronic Obstructive Pulmonary Disease (COPD) GASTROINTESTINAL: Positive Gastrointestinal Disorders GENITOURINARY: Negative Renal Disease MUSCULOSKELETAL: Positive Arthritis ENDOCRINE: Negative Diabetes Mellitus Type 1 or Diabetes Mellitus Type 2 PSYCHO/SOCIAL: Positive Depression Family History FAMILY HISTORY: Positive Family Cancer Social History SMOKING STATUS: Smoking status: Former smoker SECOND HAND EXPOSURE: second hand exposure: Yes (Housemate) ALCOHOL: Alcohol Intake: Former ALCOHOL FREQUENCY: Alcohol Intake Frequency: A Few Times a Week HOUSING: Housing: House LIVES WITH: Lives With: Friend(s) 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 Patient Portal Questionaires Social History Living Situation History Housing: House Tobacco History Smoking Status: Former smoker Second Hand Smoke Exposure: Yes (Housemate) Alcohol History Alcohol Intake: Former Alcohol Intake Frequency: A Few Times a Week Domestic Abuse History Do You Feel Safe at Home: Yes Review of Systems Report any current symptoms Only answer those that you have currently: Past Medical History Past Medical History Have you ever been diagnosed with any of the following: Cardiology Problems Congestive Heart Failure: No Hypertension: Yes Respiratory Problems Chronic Obstructive Pulmonary Disease (COPD): No Genital/Urinary Problems Renal Disease: No Musculoskeletal Problems Arthritis: Yes Endocrine Problems Diabetes Mellitus Type 1: No Diabetes Mellitus Type 2: No Psychologic Problems Depression: Yes History of Present Illness HPI Narrative Pt called for referral to hand surgeon due to pain. Pt is advised to return to office for further evaluation and examination. Pt will return to clinic on 12/08. Assessment & Plan Additional Assessment Internal Medicine Attending Note: Case discussed with and agree with note and management plan of Resident Physician as per Resident's Note above. Issues of concern for present visit are as follows: Telehealth visit. Patient continues to complain of hand pain. Prior workup unremarkable. Referral can be made upon repeat examination. Patient will follow-up tomorrow or within the next week. David Marquez MD Physician Billing Established Patient Established Patient: E/M Level 2-CPT 80032 Office Procedures [facility] Level of Care Nursing/Assessment Patient Status: Established Patient Nursing Assessment/Reassessment: Medication Reconciliation and Update PMH in EMR Coordination of Care: Consent,records obtained, informed consent Established Patient Charge Established Patient Point Assignment: 20 Telehealth Telemed Phone/Video with patient at home & ,PA,BASS MECHANISM MAKER: Yes
== END 2024-11-30 15:21 | disposition home or self-care (01) ==
LOC: HODAHC 14:03
PROVIDERS: Supervising Provider Internal Medicine
DX: M79.643 Pain in unspecified hand (principal)
CPT/HCPCS: 99212; G0463

== ENCOUNTER 2025-01-04 08:39 | Outpatient (AMB) | payer MEDICAID, SELFPAY ==
--- NOTE | 2025-01-04 08:51 | PD.RESCLINIC ---
Vital Signs 01/04/25 08:52 Height 1.93 m Height Method Stated Weight 72.688 kg Weight Measurement Method Standing Scale BMI 19.5 BP 111/71 Blood Pressure Source Automatic Cuff Blood Pressure Location Right Upper Arm Position Sitting Respiration 18 Pulse 60 Pulse Source Monitor Temp 97.5 F Temp Source Temporal Artery Scan Pulse Oximetry (%) 95 Oxygen Delivery Method Room Air Allergies/Meds Allergies & Medications Allergies Sulfa (Sulfonamide Antibiotics) Allergy (Verified 12/07/24 07:36) MA Intake Visit Data Collection New Patient or Established: Established Patient (seen at [facility] within 3 years) Seen by Clinical Staff ONLY (RN/MA): No Reason for Visit:: BILATERAL CONSTANT HAND PAIN Pain Present Currently: Yes Pain Location: Hand Pain scale:: 8 Personal Health Coach Required: No PCP or OBGYN visit in last 3 months: Yes Hx Now: No Do You Feel Safe at Home: Yes Authorities Contacted: N/A Smoking Status Smoking Status: Former smoker Immunization / Flu Flu Vaccine in the Last 12 Months: No Flu Vaccine Exclusion Criteria: No Exclusion Criteria Past Medical History Past Medical History CARDIAC: Positive Hypertension; Negative Congestive Heart Failure RESPIRATORY: Negative Chronic Obstructive Pulmonary Disease (COPD) GASTROINTESTINAL: Positive Gastrointestinal Disorders GENITOURINARY: Negative Renal Disease MUSCULOSKELETAL: Positive Arthritis ENDOCRINE: Negative Diabetes Mellitus Type 1 or Diabetes Mellitus Type 2 PSYCHO/SOCIAL: Positive Depression Family History FAMILY HISTORY: Positive Family Cancer Social History SMOKING STATUS: Smoking status: Former smoker SECOND HAND EXPOSURE: second hand exposure: Yes (Housemate) ALCOHOL: Alcohol Intake: Former ALCOHOL FREQUENCY: Alcohol Intake Frequency: A Few Times a Week HOUSING: Housing: House LIVES WITH: Lives With: Friend(s) 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 Patient Portal Questionaires Social History Living Situation History Housing: House Tobacco History Smoking Status: Former smoker Second Hand Smoke Exposure: Yes (Housemate) Alcohol History Alcohol Intake: Former Alcohol Intake Frequency: A Few Times a Week Domestic Abuse History Do You Feel Safe at Home: Yes Review of Systems Report any current symptoms Only answer those that you have currently: Past Medical History Past Medical History Have you ever been diagnosed with any of the following: Cardiology Problems Congestive Heart Failure: No Hypertension: Yes Respiratory Problems Chronic Obstructive Pulmonary Disease (COPD): No Genital/Urinary Problems Renal Disease: No Musculoskeletal Problems Arthritis: Yes Endocrine Problems Diabetes Mellitus Type 1: No Diabetes Mellitus Type 2: No Psychologic Problems Depression: Yes History of Present Illness HPI Narrative 08/10/2024: Jemma is a 53-year-old female with past medical history of bipolar I, depression and hypertension who comes up to follow-up and med refills. Patient reports that she has been feeling more anxiety and having more manic episodes. She reports during the manic episodes she gets insomnia and very overwhelmed. Patient reports that she is seeing a psychologist that recommended increasing her cariprazine. Patient denies any suicidal ideation or intention. Patient also reported thumb and hand pain that has been chronic and has been bothering her more lately. Patient would like to see a specialist and get it resolved. Patient denies any trauma to hand, but endorses constant pain throughout the day. Patient also cutting back in her ambien and is trying to wean herself of it. Patient is otherwise stable and denies any fever, chills,, SOB, chest pain, abdominal pain, change in bowel habits or trouble going to the restroom. Objective/Exam Narrative Physical exam: General: AAOx3, NAD, slightly sad appearing. HEENT: Moist mucous membranes, conjunctiva slightly erythematous from tears Cardiovascular: S1, S2, RRR Pulmonary: CTAB bilat no cough, no wheezing GI: No tenderness to light or deep palpitation, no guarding, rigidity, rebound tenderness or distension Extremities: No presence of trace or pitting edema in lower extremities bilaterally. Slight tenderness on palpation both thumbs. Neuro: AAOx3, no focal motor or sensory deficits in the UE or LE bilat Psych: Cooperative, anxious/ sad female Assessment & Plan Diagnosis / Problem List (1) Bipolar disorder: Status: Acute Qualifiers: Active/Remission status: currently active Current bipolar episode type: mixed Current episode severity: unspecified Qualified Code(s): F31.60 - Bipolar disorder, current episode mixed, unspecified Assessment & Plan: On Vraylar 3mg but reports worsening symptoms. Follows with psychologist in [facility]. Plan: Will increase Vraylar to 4.5mg. Will continue with psychologist at [facility]. (2) Insomnia: Status: Inactive Qualifiers: Insomnia type: other insomnia Qualified Code(s): G47.09 - Other insomnia Assessment & Plan: Likely stress/tragedy related Has tried multiple therapies in the past, including benadryl and melatonin Patient on Ambien Plan: Patient on Ambien, slowly tapering off. (3) Depressive disorder, not elsewhere classified: Status: Acute Assessment & Plan: Patient reports feeling depressed since the passing of her this. Patient on sertraline and bupropion Plan: Continue sertraline bupropion Continue following up with psychologist. (4) Hypertension: Status: Chronic Qualifiers: Hypertension type: unspecified Qualified Code(s): I10 - Essential (primary) hypertension Assessment & Plan: Stable Plan: Continue current medications. (5) Bilateral hand pain: Status: Acute Assessment & Plan: Patient reports bilateral hand pain at thumb area as listed going on for couple years. Patient reports pain has been worsening. Patient reports sensation of dislocation of both thumbs throughout the day and relocating them herself. Plan: Will order x-rays of both hands. Hand specialist referral with Dr. Fernandes As needed pain medication. Plan Patient will follow-up in 2 months. Referral for hand specialist made, will obtain x-ray of both hands. Pain medication as needed. Increased cariprazine to 4.5, will continue with psychologist at [facility]. Will order CBC with differential, lipid panel, and glucose levels at next visit due to antipsychotic medication effects. Orders: Orders XR hand comp BI min 3V 01/04/25 G89.29 - Other chronic pain, M79.641 - Pain in right hand, M79.642 - Pain in left hand, M79.644 - Pain in right finger(s), M79.645 - Pain in left finger(s) Referrals General surgery G89.29 - Other chronic pain, M79.641 - Pain in right hand, M79.642 - Pain in left hand, M79.644 - Pain in right finger(s), M79.645 - Pain in left finger(s) Additional Assessment Internal Medicine Attending Note: Case discussed with and agree with note and management plan of Resident Physician as per Resident's Note above. Issues of concern for present visit are as follows: Follow-up visit. Patient reporting more anxiety, more manic episodes accompanied with insomnia and feeling of being overwhelmed. Psychologist has recommended increasing cariprazine to 4.5 mg daily which we will do today. Referral to hand specialist for continued thumb and hand pain x-rays of bilateral hands ordered. Working at tapering off Ambien. Plan to check labs at next visit. David Marquez MD Physician Billing Established Patient Established Patient: E/M Level 3-CPT 22501 Office Procedures [facility] Level of Care Nursing/Assessment Patient Status: Established Patient Nursing Assessment/Reassessment: BP Monitoring, Medication Reconciliation, Update PMH in EMR and Vital Signs Coordination of Care: Complex Care and Chronic Disease 1-5, Consent,records obtained, informed consent, Lab and Imaging orders and Results/Orders obtained Established Patient Charge Established Patient Point Assignment: 95 Established Patient Point Charge: Level 3 (80-115)
[2025-01-04 08:52] VITALS: BP 111/71; PULSE 60; RESP 18; TEMP 36.4; O2SAT 95; BMI 19.5
== END 2025-01-04 09:52 | disposition home or self-care (01) ==
LOC: HODAHC 08:39
PROVIDERS: Supervising Provider Internal Medicine; Visit Provider Student in an Organized Health Care Education/Training Program
DX: F31.60 Bipolar disorder, current episode mixed, unspecified (principal); G47.00 Insomnia, unspecified; I10 Essential (primary) hypertension; M79.642 Pain in left hand; M79.641 Pain in right hand; F41.9 Anxiety disorder, unspecified; Z76.0 Encounter for issue of repeat prescription
CPT/HCPCS: 99213; G0463

== ENCOUNTER 2025-04-02 09:10 | Outpatient (AMB) | payer MEDICAID, SELFPAY ==
--- NOTE | 2025-04-02 09:10 | ACNOTE_ITS ---
Allergies/Meds Allergies & Medications Allergies Sulfa (Sulfonamide Antibiotics) Allergy (Verified 04/02/25 09:11) Medication Reconciliation ibuprofen 600 mg tablet 600 mg PO TID PRN arthritis #90 tabs 01/03/24 [Rx Confirmed 04/02/25] diclofenac sodium 1 % topical gel (Arthritis Pain (diclofenac)) 4 g topical QID #100 grams 07/12/24 [Rx Confirmed 04/02/25] zolpidem 10 mg tablet 10 mg PO QHS PRN insomnia #30 tabs 11/15/24 [Rx Confirmed 04/02/25] bupropion HCl 150 mg 24 hr tablet, extended release 150 mg PO QAM #30 tabs 04/02/25 [Rx] cariprazine 4.5 mg capsule 4.5 mg PO QDAY #30 caps 04/02/25 [Rx] famotidine 40 mg tablet 40 mg PO QDAY #90 tabs 04/02/25 [Rx] losartan 100 mg-hydrochlorothiazide 25 mg tablet 1 tab PO QDAY #90 tabs 04/02/25 [Rx] sertraline 200 mg capsule 200 mg PO QDAY depression #30 caps 04/02/25 [Rx] MA Intake Visit Data Collection New Patient or Established: Established Patient (seen at [facility] within 3 years) Seen by Clinical Staff ONLY (RN/TRIXIE): No Pain Present Currently: No Pain scale:: 0 Pain Scale Used: [place]/Numerical Process Development Manager Required: No PCP or OBGYN visit in last 3 months: No Do You Feel Safe at Home: Yes Authorities Contacted: N/A Smoking Status Smoking Status: Former smoker For Televisit only Telemed Video/Phone Visit: Yes Verbal consent obtained for Telemed visit?: Yes Verbal Consent witness name: CHENG GONZALEZ MA Telemed Video/Phone visit w/Clinical Staff: 21-30 min Immunization / Flu Flu Vaccine in the Last 12 Months: No Flu Vaccine Exclusion Criteria: No Exclusion Criteria Past Medical History Past Medical History CARDIAC: Positive Hypertension; Negative Congestive Heart Failure RESPIRATORY: Negative Chronic Obstructive Pulmonary Disease (COPD) GASTROINTESTINAL: Positive Gastrointestinal Disorders GENITOURINARY: Negative Renal Disease MUSCULOSKELETAL: Positive Arthritis ENDOCRINE: Negative Diabetes Mellitus Type 1 or Diabetes Mellitus Type 2 PSYCHO/SOCIAL: Positive Depression Family History FAMILY HISTORY: Positive Family Cancer Social History SMOKING STATUS: Smoking status: Former smoker SECOND HAND EXPOSURE: second hand exposure: Yes (Housemate) ALCOHOL: Alcohol Intake: Former ALCOHOL FREQUENCY: Alcohol Intake Frequency: A Few Times a Week HOUSING: Housing: House LIVES WITH: Lives With: Friend(s) 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 Patient Portal Questionaires Social History Living Situation History Housing: House Tobacco History Smoking Status: Former smoker Second Hand Smoke Exposure: Yes (Housemate) Alcohol History Alcohol Intake: Former Alcohol Intake Frequency: A Few Times a Week Domestic Abuse History Do You Feel Safe at Home: Yes Review of Systems Report any current symptoms Only answer those that you have currently: Past Medical History Past Medical History Have you ever been diagnosed with any of the following: Cardiology Problems Congestive Heart Failure: No Hypertension: Yes Respiratory Problems Chronic Obstructive Pulmonary Disease (COPD): No Genital/Urinary Problems Renal Disease: No Musculoskeletal Problems Arthritis: Yes Endocrine Problems Diabetes Mellitus Type 1: No Diabetes Mellitus Type 2: No Psychologic Problems Depression: Yes History of Present Illness HPI Narrative Jemma is a 53-year-old female with past medical history of bipolar I, depression and hypertension. 04/02: Pt called in for medication refills. Denies any recent illness, sick contacts or recent hospitalizations. Mood is stable, denies any manic episodes. Pt requested refill on her medications. Review of Systems Review of Systems Systems Reviewed: All systems reviewed, normal except as documented Assessment & Plan Diagnosis / Problem List (1) Bipolar 1 disorder with moderate arlene: Status: Acute Assessment & Plan: -mood is stable, denies manic episodes Plan: -refilled Cariprazine, buproprion and sertraline (2) GERD (gastroesophageal reflux disease): Status: Acute Plan: -refilled famotidine (3) Hypertension: Status: Chronic Qualifiers: Hypertension type: unspecified Qualified Code(s): I10 - Essential (primary) hypertension Assessment & Plan: -Per patient, BP at home has been stable Plan: refilled losartan 100-Hydrochlorothiazide 25 Additional Assessment Attending note: I, David Marquez MD, attest that I was physically present for the [place] ions of the service completed via telehealth, and I reviewed and discussed the case with the resident and agree with the resident's plans of care as documented above. David Marquez MD Physician Billing Established Patient Established Patient: E/M Level 2-CPT 57934 Office Procedures [facility] Level of Care Nursing/Assessment Patient Status: Established Patient Nursing Assessment/Reassessment: Medication Reconciliation and Update PMH in EMR Coordination of Care: Complex Care and Chronic Disease 1-5, Consent,records obtained, informed consent, Education Simp Pt/Fam and Staff clarify orders Established Patient Charge Established Patient Point Assignment: 70 Telehealth Telemed Phone/Video with patient at home & Dr,PA,GLEASON GEAR GENERATOR: Yes
== END 2025-04-02 10:30 | disposition home or self-care (01) ==
LOC: HODAHC 09:10
PROVIDERS: Supervising Provider Internal Medicine
DX: Z76.0 Encounter for issue of repeat prescription (principal); F31.9 Bipolar disorder, unspecified; I10 Essential (primary) hypertension; K21.9 Gastro-esophageal reflux disease without esophagitis
CPT/HCPCS: 99212; G0463

== ENCOUNTER 2025-05-22 13:47 | Outpatient (AMB) | payer MEDICAID, SELFPAY ==
--- NOTE | 2025-05-22 13:48 | ACNOTE_ITS ---
Allergies/Meds Allergies & Medications Allergies Sulfa (Sulfonamide Antibiotics) Allergy (Verified 05/22/25 13:49) Medication Reconciliation zolpidem 10 mg tablet 10 mg PO QHS PRN insomnia #30 tabs 11/15/24 [Rx Confirmed 05/22/25] bupropion HCl 150 mg 24 hr tablet, extended release 150 mg PO QAM #30 tabs 04/02/25 [Rx Confirmed 05/22/25] losartan 100 mg-hydrochlorothiazide 25 mg tablet 1 tab PO QDAY #90 tabs 04/02/25 [Rx Confirmed 05/22/25] sertraline 200 mg capsule 200 mg PO QDAY depression #30 caps 04/02/25 [Rx Confirmed 05/22/25] diclofenac sodium 75 mg tablet,delayed release 75 mg PO BID #30 tabs 05/22/25 [Rx] famotidine 40 mg tablet 40 mg PO QDAY #30 tabs 05/22/25 [Rx] MA Intake Visit Data Collection New Patient or Established: Established Patient (seen at [facility] within 3 years) Seen by Clinical Staff ONLY (RN/MA): No Pain Present Currently: Yes Pain Location: Back and Foot (left) Regulatory Coordinator Required: No Smoking Status Smoking Status: Former smoker For Televisit only Telemed Video/Phone Visit: Yes Verbal consent obtained for Telemed visit?: Yes Verbal Consent witness name: marcos Telemed Video/Phone visit w/Clinical Staff: 21-30 min Immunization / Flu Flu Vaccine in the Last 12 Months: No Flu Vaccine Exclusion Criteria: Already Received Past Medical History Past Medical History CARDIAC: Positive Hypertension; Negative Congestive Heart Failure RESPIRATORY: Negative Chronic Obstructive Pulmonary Disease (COPD) GASTROINTESTINAL: Positive Gastrointestinal Disorders GENITOURINARY: Negative Renal Disease MUSCULOSKELETAL: Positive Arthritis ENDOCRINE: Negative Diabetes Mellitus Type 1 or Diabetes Mellitus Type 2 PSYCHO/SOCIAL: Positive Depression Family History FAMILY HISTORY: Positive Family Cancer Social History SMOKING STATUS: Smoking status: Former smoker SECOND HAND EXPOSURE: second hand exposure: Yes (Housemate) ALCOHOL: Alcohol Intake: Former ALCOHOL FREQUENCY: Alcohol Intake Frequency: A Few Times a Week HOUSING: Housing: House LIVES WITH: Lives With: Friend(s) 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 Patient Portal Questionaires Social History Living Situation History Housing: House Tobacco History Smoking Status: Former smoker Second Hand Smoke Exposure: Yes (Housemate) Alcohol History Alcohol Intake: Former Alcohol Intake Frequency: A Few Times a Week Review of Systems Report any current symptoms Only answer those that you have currently: Past Medical History Past Medical History Have you ever been diagnosed with any of the following: Cardiology Problems Congestive Heart Failure: No Hypertension: Yes Respiratory Problems Chronic Obstructive Pulmonary Disease (COPD): No Genital/Urinary Problems Renal Disease: No Musculoskeletal Problems Arthritis: Yes Endocrine Problems Diabetes Mellitus Type 1: No Diabetes Mellitus Type 2: No Psychologic Problems Depression: Yes History of Present Illness HPI Narrative Jemma is a 53-year-old female with past medical history of bipolar I, depression and hypertension. 04/02: Pt called in for medication refills. Denies any recent illness, sick contacts or recent hospitalizations. Mood is stable, denies any manic episodes. Pt requested refill on her medications. 05/22/25: follow up Telehealth visit; Pt is requesting refills, complaining of headache, ordered diclofenac, also complaing of neuropathy, we discussed about starting pregablin, will consider it if symtpoms presist. Assessment & Plan Diagnosis / Problem List (1) Osteoarthritis: Status: Chronic (2) GERD (gastroesophageal reflux disease): Status: Acute (3) Osteoarthritis: Status: Chronic Orders: Referrals Orthopedics Office Procedures [facility] Level of Care Nursing/Assessment Patient Status: Established Patient Nursing Assessment/Reassessment: Medication Reconciliation and Update PMH in EMR Coordination of Care: 4+ Authorizations needed, Lab and Imaging orders and Staff clarify orders Established Patient Charge Established Patient Point Assignment: 65 Telehealth Telemed Phone/Video with patient at home & ,PA,CLOTHING MAN: Yes
== END 2025-05-22 15:10 | disposition home or self-care (01) ==
LOC: HODAHC 13:47
PROVIDERS: PCP Student in an Organized Health Care Education/Training Program; Referring Provider Student in an Organized Health Care Education/Training Program; Supervising Provider Internal Medicine; Visit Provider Student in an Organized Health Care Education/Training Program
DX: M19.90 Unspecified osteoarthritis, unspecified site (principal)
CPT/HCPCS: 99212; G0463